=== PATIENT | male | born 1995 | race Hispanic/Latino ===

== ENCOUNTER 2024-10-09 23:43 | Emergency (ER) | payer BC, SELFPAY ==
[2024-10-10] MEDS ORDERED: NA CHLORIDE 0.9% 1,000 ML ONE (00:44)
[2024-10-10] MEDS ORDERED: MORPHINE 4 MG/ML SYR ONE (00:44)
[2024-10-10] MEDS ORDERED: LIDOCAINE 2% W/EPI 1:200,000 MPF 20 ML VIAL IM ONE (00:44)
[2024-10-10 01:20] LABS: Absolute Eosinophils 0.2 K/uL (0-0.5); Absolute Lymphocytes (CBC) 2.1 K/uL (0.7-4.9); Absolute Monocytes 0.9 K/uL (0.1-1.3); Absolute Neutrophil 7.8 K/uL (1.8-8.0); Basophils % 0.4 % (0-1.3); Eosinophils % 1.8 % (0-4.4); Hematocrit 43.5 % (39.6-49.0); Hemoglobin 15.1 g/dL (13.6-17.9); Lymphocytes % 19.3 % (15.3-44.8); MCH 28.7 pg (27.0-35.0); MCHC 34.8 g/dL (32.0-36.0); MCV 82.5 fL (80-100); MPV 7.7 fL (7.6-11.3); Monocytes % 7.9 % (3.3-12.3); Neutrophils % 70.6 % (41.7-73.7); Platelets 340 thou/uL (152-406); RBC Red Blood Cell Count 5.28 M/uL (4.33-5.43); Red Cell Distribution Width 13.3 % (12.1-15.2)
--- NOTE | 2024-10-10 01:32 | EDPHYS ---
Physician Documentation [facility] Name: Ji Araya Jr Age: 29 yrs Sex: Male : 1995 Arrival Date: 10/09/2024 Time: 23:43 Bed 7 Private MD: ED Physician Jose A Gilbert HPI: 10/10 00:05 This 29 yrs old Male presents to ER via Ambulatory with complaints of Abscess. cp 00:05 The patient presents with an abscess of the left axilla. Description: fluctuant, cp swollen. 00:05 Onset: The symptoms/episode began/occurred 1 week(s) ago, and became worse 2 day(s) ago.cp 00:05 Associated signs and symptoms: Pertinent negatives: discharge, drainage, fever. cp Historical: - Allergies: 00:01 No Known Allergies; br2 - Home Meds: 00:01 None [Active]; br2 - Immunization history:: Adult Immunizations up to date. - Infectious Disease History:: Denies. - Social history:: Smoking status: Patient denies any tobacco usage or history of. ROS: 00:10 Skin: Positive for abscess, of the left axilla, cp 00:10 Eyes: Negative for injury, pain, redness, and discharge, cp 00:10 Constitutional: Negative for body aches, chills, fever, 00:10 Neck: Negative for pain with movement, pain at rest, stiffness, 00:10 Respiratory: Negative for cough, shortness of breath, wheezing, 00:10 Abdomen/GI: Negative for abdominal pain, vomiting, diarrhea, constipation, 00:10 Back: Negative for pain at rest, pain with movement, 00:10 Neuro: Negative for altered mental status, headache, weakness, 00:10 All other systems are negative, Exam: 00:20 Constitutional: The patient appears in no acute distress, alert, awake, non-toxic, well cp developed, well nourished, 00:20 Head/Face: Normocephalic, atraumatic. cp 00:20 Chest/axilla: Axilla: abscess, of the left axilla, with tenderness, mild erythema, tender, fluctuant, 00:20 Cardiovascular: Rate: tachycardic, 00:20 Respiratory: the patient does not display signs of respiratory distress, Respirations: normal, no use of accessory muscles, no retractions, labored breathing, is not present, Breath sounds: are clear throughout, no decreased breath sounds, no stridor, no wheezing, 00:20 Abdomen/GI: Inspection: abdomen appears normal, Palpation: abdomen is soft and non-tender, in all quadrants, 00:20 Neuro: Orientation: to person, place \T\ time. Mentation: is normal, Vital Signs: 10/09 23:59 BP 157 / 99; Pulse 108; Resp 18; Temp 98.9; Pulse Ox 98% ; Weight 90.72 kg; Height 5 br2 ft. 5 in. ; Pain 8/10; 10/10 00:56 BP 134 / 78; Pulse 88; Resp 18 S; Pulse Ox 97% on R/A; ha1 01:50 BP 137 / 75; Pulse 84; Resp 18 S; Temp 97.9; Pulse Ox 99% on R/A; ha1 02:20 BP 124 / 81; Pulse 83; Resp 16 S; Pulse Ox 98% on R/A; ha1 10/09 23:59 Body Mass Index 33.28 (90.72 kg, 165.1 cm) br2 10/09 23:59 Pain Scale: Adult br2 Procedures: 01:30 I \T\ D: Incision and drainage was performed for an abscess of the left axilla. Prepped with Betadine, Anesthetized with ml's 2% Lidocaine with epinephrine. 5 ml's 2% Lidocaine with epinephrine. Incised with #11 blade. Drained small amount purulent fluid. Packed with iodoform gauze, Dressing: sterile 4x4 gauze, the patient tolerated the procedure well. MDM: 10/09 23:57 Medical Screening Exam initiated 10/10 00:10 Differential diagnosis: abscess, cellulitis, insect bite. 01:31 Data reviewed: vital signs, nurses notes, and as a result, I will discharge patient. 01:31 I considered the following discharge prescriptions or medication management in the emergency department Medications were administered in the Emergency Department. See MAR. Counseling: I had a detailed discussion with the patient and/or guardian regarding the historical points, exam findings, and any diagnostic results supporting the discharge/admit diagnosis, to return to the emergency department if symptoms worsen or persist or if there are any questions or concerns that arise at home. Response to treatment: the patient's symptoms have markedly improved after treatment, and as a result, I will discharge patient. 10/10 00:03 Order name: CBC with Diff; Complete Time: 21:48 cp 10/10 00:03 Order name: BMP; Complete Time: 21:48 cp 10/10 00:03 Order name: I\T\D Setup; Complete Time: 00:53 cp 10/10 00:03 Order name: IV; Complete Time: 00:49 cp Administered Medications: 00:49 Drug: NS 0.9% IV 1000 ml IV at 1000 ml once; to be given as a bolus over 60 minutes jj7 Route: IV; Rate: 1000 ml; Site: right antecubital; 02:14 Follow up: Response: No adverse reaction; IV Status: Completed infusion; IV Intake: ha1 1000ml 00:49 Drug: morphine IVP or IV 4 mg IVP once over 4 mins Route: IVP; Infused Over: 4 mins; jj7 Site: right antecubital; 01:10 Follow up: Response: No adverse reaction; Pain is decreased; RASS: Alert and Calm (0) ha1 01:40 Drug: Clindamycin IVPB 900 mg IVPB once over 30 mins; (mix in 50 mL) Route: IVPB; ha1 Infused Over: 30 mins; Site: right antecubital; 02:30 Follow up: Response: No adverse reaction; IV Status: Completed infusion; IV Intake: [id number] 01:40 Drug: Trimethoprim-Sulfamethoxazole PO (160 mg-800 mg (DS) 1 tablet PO once Route: PO; ha1 02:16 Follow up: Response: No adverse reaction ha1 Disposition Summary: 10/10/24 01:31 Discharge Ordered Notes: Location: Home cp Problem: new cp Symptoms: have improved cp Condition: Stable cp Diagnosis - Cutaneous abscess of left axilla cp Followup: cp - With: Usama Welsh MD - When: 2 - 3 days - Reason: Wound Recheck Discharge Instructions: - Discharge Summary Sheet cp - Skin Abscess cp - Incision and Drainage cp - Incision and Drainage, Care After cp Forms: - Medication Reconciliation Form cp - Antibiotic Education cp - Prescription Opioid Use cp - Patient Portal Instructions cp - Leadership Thank You Letter cp Prescriptions: - Anaprox DS 550 mg Oral Tablet - take 1 tablet ORAL route every 12 hours As needed; 20 tablet; Refills: 0, cp Product Selection Permitted - Clindamycin HCl 300 mg Oral Capsule - take 1 capsule ORAL route every 6 hours for 10 days; 40 capsule; Refills: 0, cp Product Selection Permitted - Bactrim DS 800-160 mg Oral Tablet - take 1 tablet ORAL route every 12 hours for 10 days; 20 tablet; Refills: 0, cp Product Selection Permitted Addendum: 10/12/2024 07:38 Co-signature as Attending Physician, Jose A Gilbert MD I reviewed the patient's care r t provided by the Advanced Practice Provider and agree with the diagnosis and treatment plan. Signatures: Dispatcher [employer] EDMS Jem Person PA PA cp Ayala, Heidy, RN RN ha1 Thor Styles RN RN jj7 Jose A Gilbert MD MD rt Viola Sequeira RN RN br2
--- NOTE | 2024-10-10 01:32 | ER ---
Nurse's Notes [facility] Name: Ji Araya Jr Age: 29 yrs Sex: Male : 1995 Arrival Date: 10/09/2024 Time: 23:43 Bed 7 Private MD: Diagnosis: Cutaneous abscess of left axilla Presentation: 10/09 23:59 Chief complaint: Patient states: ABSCESS UNDER LEFT ARM FOR 1 WEEK, PAIN STARTED 2 DAYS br2 AGO, DENIES DRAINAGE. Coronavirus screen: Client denies travel out of the [place] in the last 14 days. Ebola Screen: Patient denies exposure to infectious person. Initial Sepsis Screen: Does the patient meet any 2 criteria? No. Patient's initial sepsis screen is negative. Does the patient have a suspected source of infection? No. Patient's initial sepsis screen is negative. Risk Assessment: Do you want to hurt yourself or someone else? Patient reports no desire to harm self or others. Onset of symptoms was October 03, 2024. 23:59 Method Of Arrival: Ambulatory br2 23:59 Acuity: MARISSA 4 br2 Triage Assessment: 10/10 00:01 General: Appears uncomfortable, Behavior is calm, cooperative. Pain: Complains of pain br2 in left axilla Pain currently is 8 out of 10 on a pain scale. Historical: - Allergies: 00:01 No Known Allergies; br2 - Home Meds: 00:01 None [Active]; br2 - Immunization history:: Adult Immunizations up to date. - Infectious Disease History:: Denies. - Social history:: Smoking status: Patient denies any tobacco usage or history of. Screenin:50 [facility] ED Fall Risk Assessment (Adult) History of falling in the last 3 months, jj7 including since admission No falls in past 3 months (0 pts) Confusion or Disorientation No (0 pts) Intoxicated or Sedated No (0 pts) Impaired Gait No (0 pts) Mobility Assist Device Used No (0 pt) Altered Elimination No (0 pt) Score/Fall Risk Level 0 - 2 = Low Risk Oriented to surroundings, Maintained a safe environment, Educated pt \T\ family on fall prevention, incl call for assistance when getting out of bed, Assessed \T\ reinforced patient's understanding of fall precautions. Abuse screen: Denies threats or abuse. Nutritional screening: No deficits noted. Tuberculosis screening: No symptoms or risk factors identified. Assessment: 10/09 23:56 General: Appears uncomfortable, Behavior is calm, cooperative. Pain: Complains of pain ha1 in left axilla Pain currently is 8 out of 10 on a pain scale. Quality of pain is described as aching, Aggravated by increased activity, repositioning. Neuro: Level of Consciousness is awake, alert, obeys commands, Oriented to person, place, time, situation. Cardiovascular: Capillary refill < 3 seconds Patient's skin is warm and dry. Respiratory: Airway is patent Respiratory effort is even, unlabored, Respiratory pattern is regular, symmetrical. GI: Abdomen is round non-distended. : No signs and/or symptoms were reported regarding the genitourinary system. Derm: swelling on the left axillary. 23:56 Musculoskeletal: Circulation, motion, and sensation intact. Range of motion: intact in ha1 all extremities. 10/10 01:00 Reassessment: Patient and/or family updated on plan of care and expected duration. Pain ha1 level reassessed. Patient is alert, oriented x 3, equal unlabored respirations, skin warm/dry/pink. 01:50 Reassessment: Patient and/or family updated on plan of care and expected duration. Pain ha1 level reassessed. Patient is alert, oriented x 3, equal unlabored respirations, skin warm/dry/pink. discharge pending. Awaiting on medication to be completed. 02:20 Reassessment: Patient and/or family updated on plan of care and expected duration. Pain ha1 level reassessed. Patient is alert, oriented x 3, equal unlabored respirations, skin warm/dry/pink. Vital Signs: 10/09 23:59 BP 157 / 99; Pulse 108; Resp 18; Temp 98.9; Pulse Ox 98% ; Weight 90.72 kg; Height 5 br2 ft. 5 in. ; Pain 8/10; 10/10 00:56 BP 134 / 78; Pulse 88; Resp 18 S; Pulse Ox 97% on R/A; ha1 01:50 BP 137 / 75; Pulse 84; Resp 18 S; Temp 97.9; Pulse Ox 99% on R/A; ha1 02:20 BP 124 / 81; Pulse 83; Resp 16 S; Pulse Ox 98% on R/A; ha1 02/07 23:59 Body Mass Index 33.28 (90.72 kg, 165.1 cm) br2 10/09 23:59 Pain Scale: Adult br2 ED Course: 10/09 23:45 Patient arrived in ED. jj6 23:46 Jem Person PA is PHCP. cp 23:46 Jose A Gilbert MD is Attending Physician. cp 10/10 00:01 Triage completed. br2 00:01 Arm band placed on right wrist. br2 00:38 Thor Styles RN is Primary Nurse. jj7 00:50 Patient has correct armband on for positive identification. Bed in low position. Call jj7 light in reach. Adult w/ patient. Provided Education on: USE OF CALL HENDERSON. Warm blanket given. 00:50 Inserted saline lock: 20 gauge in right antecubital area, using aseptic technique. jj7 Blood collected. Flushed with 10 mL NS. 01:31 Usama Welsh MD is Referral Physician. cp 02:30 No provider procedures requiring assistance completed. ha1 02:30 IV discontinued, intact, bleeding controlled, No redness/swelling at site. Pressure ha1 dressing applied. Administered Medications: 00:49 Drug: NS 0.9% IV 1000 ml IV at 1000 ml once; to be given as a bolus over 60 minutes jj7 Route: IV; Rate: 1000 ml; Site: right antecubital; 02:14 Follow up: Response: No adverse reaction; IV Status: Completed infusion; IV Intake: ha1 1000ml 00:49 Drug: morphine IVP or IV 4 mg IVP once over 4 mins Route: IVP; Infused Over: 4 mins; jj7 Site: right antecubital; 01:10 Follow up: Response: No adverse reaction; Pain is decreased; RASS: Alert and Calm (0) ha1 01:40 Drug: Clindamycin IVPB 900 mg IVPB once over 30 mins; (mix in 50 mL) Route: IVPB; ha1 Infused Over: 30 mins; Site: right antecubital; 02:30 Follow up: Response: No adverse reaction; IV Status: Completed infusion; IV Intake: [id number] 01:40 Drug: Trimethoprim-Sulfamethoxazole PO (160 mg-800 mg (DS) 1 tablet PO once Route: PO; ha1 02:16 Follow up: Response: No adverse reaction ha1 Medication: 00:57 VIS not applicable for this client. ha1 Intake: 02:14 IV: 1000ml; Total: 1000ml. ha1 02:30 IV: 50ml; Total: 1050ml. ha1 Outcome: 01:31 Discharge ordered by . cp 02:30 Discharged to home ambulatory, with family, ha1 02:30 Condition: stable 02:30 Discharge instructions given to patient, Instructed on discharge instructions, follow up and referral plans. medication usage, Demonstrated understanding of instructions, follow-up care, medications, Prescriptions given X 3, 02:30 Patient left the ED. ha1 Signatures: Jem Person PA PA Danna Brantley jj6 Melissa Ruff RN RN ha1 Thor Styles RN RN jj7 Viola Sequeira RN RN br2 Corrections: (The following items were deleted from the chart) 02:44 02:44 Patient left the ED. ha1 ha1
[2024-10-10 01:33] LABS: Anion Gap 5.3 mEq/L (5.0-15.0); Potassium 3.3 mEq/L (3.5-5.1)
[2024-10-10] MEDS ORDERED: CLINDAMYCIN 900MG/D5W 900 MG/50 ML IVPB IV ONE (01:43)
[2024-10-10] MEDS ORDERED: SMZ./TMP. 800/160 MG TABLET ONE (01:43)
[2024-10-10 02:53] VITALS: BP 137/75; TEMP 97.9; O2SAT 99
== END 2024-10-10 02:44 | disposition home or self-care (01) ==
LOC: ER 23:43
PROC: 0H9CXZZ Drainage of Left Upper Arm Skin, External Approach (ICD-10-PCS; principal; 2024-10-10)
DX: L02.412 Cutaneous abscess of left axilla (principal)
CPT/HCPCS: 36415; 80048; 85025; 96361; 96365; 96375; 99284; J7030

== ENCOUNTER 2024-10-11 11:59 | Emergency (ER) | payer SELFPAY ==
--- NOTE | 2024-10-11 12:34 | EDPHYS ---
Physician Documentation [facility] Name: Ji Araya Jr Age: 29 yrs Sex: Male : 1995 Arrival Date: 10/11/2024 Time: 11:59 Bed 17 Private MD: ED Physician Alexx Olson HPI: 10/11 12:14 This 29 yrs old Male presents to ER via Ambulatory with complaints of Wound rn Check. 12:14 Patient presents to ED for recheck of: abscess. The affected area is on the left rn axilla. Previous treatment: The patient was initially treated 2 day(s) ago. The patient has not experienced similar symptoms in the past. Patient reports that incision and drainage to left axillary abscess 2 days ago. Told to return here in 2 days for dressing change. Patient states was not given packing or instructions. Overall feeling better. No fever. Still noticing small amount of drainage from wound.. Historical: - Allergies: 12:12 No Known Allergies; ss - PSHx: 12:12 Appendectomy; ss - Immunization history:: Adult Immunizations unknown. - Infectious Disease History:: Denies. - Social history:: Smoking status: Patient denies any tobacco usage or history of. - Family history:: not pertinent. - Hospitalizations: : No recent hospitalization is reported. ROS: 12:14 Constitutional: Negative for fever, chills, and weight loss, Skin: Positive for left rn axillary abscess status post incision and drainage Exam: 12:14 Constitutional: This is a well developed, well nourished patient who is awake, alert, rn and in no acute distress. Skin: Left axilla with 2 cm area of induration, packing noted from central line of wound, no active bleeding but still mild drainage. No fluctuance. Vital Signs: 12:10 BP 154 / 99; Pulse 74; ss 12:42 Weight 90.72 kg; Height 5 ft. 6 in. ; kj2 12:44 BP 142 / 88; Pulse 84; Resp 20; Temp 98.2; Pulse Ox 100% on R/A; Weight 90.72 kg; kj2 Height 5 ft. 6 in. ; 12:44 Body Mass Index 32.28 (90.72 kg, 167.64 cm) kj2 Procedures: 12:32 Performed Wound packing. Removed approximately 3 inches of wound packing iodoform rn strip. Replaced with new iodoform strip and showed family member how to do it for subsequent changes. Tolerated well.. MDM: 12:01 Medical Screening Exam initiated rn 12:32 Differential diagnosis: wound s/p I\T\D. Data reviewed: vital signs, nurses notes, and as rn a result, I will discharge patient. Counseling: I had a detailed discussion with the patient and/or guardian regarding the historical points, exam findings, and any diagnostic results supporting the discharge/admit diagnosis, the need for outpatient follow up, to return to the emergency department if symptoms worsen or persist or if there are any questions or concerns that arise at home. Administered Medications: No medications were administered Disposition Summary: 10/11/24 12:34 Discharge Ordered Notes: Location: Home rn Problem: new rn Symptoms: have improved rn Condition: Stable rn Diagnosis - Encounter for change or removal of surgical wound dressing rn Followup: rn - With: Private Physician - When: As needed - Reason: Recheck today's complaints, Re-evaluation by your physician Discharge Instructions: - How to Change Your Wound Dressing rn - Wound Packing rn - Discharge Summary Sheet ss Forms: - Medication Reconciliation Form rn - Antibiotic rn spine - Prescription Opioid Use rn - Patient Portal Instructions rn - Leadership Thank You Letter rn - Work release form ss Signatures: Alexx Olson MD MD rn Blanchard, Shelby, RN RN Muna Batista RN RN kj2
--- NOTE | 2024-10-11 12:34 | ER ---
Nurse's Notes [facility] Name: Ji Araya Jr Age: 29 yrs Sex: Male : 1995 Arrival Date: 10/11/2024 Time: 11:59 Bed 17 Private MD: Diagnosis: Encounter for change or removal of surgical wound dressing Presentation: 10/11 12:10 Chief complaint: Patient states: Here for wound recheck after I\T\D to L axilla. ss Coronavirus screen: Client denies travel out of the [place] in the last 14 days. Ebola Screen: Patient denies exposure to infectious person. Patient denies travel to an Ebola-affected area in the 21 days before illness onset. 12:10 Method Of Arrival: Ambulatory ss 12:11 Initial Sepsis Screen: Does the patient meet any 2 criteria? No. Patient's initial ss sepsis screen is negative. Does the patient have a suspected source of infection? No. Patient's initial sepsis screen is negative. Risk Assessment: Do you want to hurt yourself or someone else? Patient reports no desire to harm self or others. Onset of symptoms is unknown. 12:11 Acuity: MARISSA 4 ss Historical: - Allergies: 12:12 No Known Allergies; ss - PSHx: 12:12 Appendectomy; ss - Immunization history:: Adult Immunizations unknown. - Infectious Disease History:: Denies. - Social history:: Smoking status: Patient denies any tobacco usage or history of. - Family history:: not pertinent. - Hospitalizations: : No recent hospitalization is reported. Screenin:26 [facility] ED Fall Risk Assessment (Adult) History of falling in the last 3 months, kj2 including since admission No falls in past 3 months (0 pts) Confusion or Disorientation Intoxicated or Sedated No (0 pts) Impaired Gait No (0 pts) Mobility Assist Device Used No (0 pt) Altered Elimination No (0 pt) Score/Fall Risk Level 0 - 2 = Low Risk Maintained a safe environment, Hourly rounding (assess needs \T\ fall precautionary measures) done. Abuse screen: Denies threats or abuse. Denies injuries from another. Nutritional screening: No deficits noted. Tuberculosis screening: No symptoms or risk factors identified. Assessment: 12:24 General: Appears in no apparent distress. Behavior is calm, cooperative. Pain: Denies kj2 pain. Neuro: Level of Consciousness is awake, alert, obeys commands, Oriented to person, place, time, situation. Cardiovascular: Patient's skin is warm and dry. Respiratory: Airway is patent Respiratory effort is unlabored. GI: No signs and/or symptoms were reported involving the gastrointestinal system. : No signs and/or symptoms were reported regarding the genitourinary system. Vital Signs: 12:10 BP 154 / 99; Pulse 74; ss 12:42 Weight 90.72 kg; Height 5 ft. 6 in. ; kj2 12:44 BP 142 / 88; Pulse 84; Resp 20; Temp 98.2; Pulse Ox 100% on R/A; Weight 90.72 kg; kj2 Height 5 ft. 6 in. ; 12:44 Body Mass Index 32.28 (90.72 kg, 167.64 cm) kj2 ED Course: 12:01 Patient arrived in ED. ra3 12:01 Alexx Olson MD is Attending Physician. rn 12:11 Arm band placed on right wrist. ss 12:12 Triage completed. 12:23 Muna Batista, ERIC is Primary Nurse. kj2 12:45 Patient has correct armband on for positive identification. Bed in low position. Call kj2 light in reach. Provided Education on: call light. 12:46 No provider procedures requiring assistance completed. Patient did not have IV access kj2 during this emergency room visit. Administered Medications: No medications were administered Medication: 12:27 VIS not applicable for this client. kj2 Outcome: 12:34 Discharge ordered by . rn 12:46 Discharged to home kj2 12:46 Condition: stable 12:46 Discharge instructions given to patient, family, Instructed on discharge instructions, follow up and referral plans. Demonstrated understanding of instructions, follow-up care, 12:47 Patient left the ED. kj2 Signatures: Alexx Olson MD MD rn Blanchard, Shelby, RN RN ss Alva, Ruby [facility] Muna Batista RN RN kj2
[2024-10-11 12:53] VITALS: BP 142/88; TEMP 98.2; O2SAT 100
== END 2024-10-11 12:47 | disposition home or self-care (01) ==
LOC: ER 11:59
DX: Z48.01 Encounter for change or removal of surgical wound dressing (principal)
CPT/HCPCS: 99282